=== PATIENT | female | born 1980 | race Caucasian/White ===

== ENCOUNTER 2016-10-31 10:59 | Emergency (ER) | payer OTHER ==
[2016-10-31 11:59] VITALS: BP 122/80
--- NOTE | 2016-10-31 12:20 | UC ---
Skin Complaint HPI - HPI Summary HPI Summary: pt presents with c/o erythematous, pruritic skin, clear fluid filled vesicles that began 1 month ago. Pt has possible exposure to poison GONZALEZ. Pt was seen by Dr. Hidalgo, stockroom associate and diagnosed with poison GONZALEZ. Pt was given a RX for steroid cream and has been using it with some improvement. Pt states that vesicles/skin are pruritic and spreading. - History of Current Complaint Time Seen by Provider: 10/31/16 11:58 Stated Complaint: RASH Hx Obtained From: Patient ?: No Onset/Duration: Gradual Onset, Lasting Weeks - 4-6 weeks Skin Exposure Onset/Duration: Weeks Ago Timing: Constant Onset Severity: Mild Current Severity: Mild Location: Diffuse Character: Pruritus, Redness Aggravating: Touch Alleviating: Other - prescription steroid cream Associated Signs & Symptoms: Positive: Rash, Drainage, Tenderness Related History: Possible Reaction to: Environmental Exposure - Allergy/Home Medications Allergies/Adverse Reactions: Allergies Allergy/AdvReac Type Severity Reaction Status Date / Time No Known Allergies Allergy Verified 10/31/16 12:02 Home Medications: Home Medications Halobetasol Propionate [Ultravate] 1 applic TOPICAL BID 10/31/16 [History Confirmed 10/31/16] Review of Systems Constitutional: Negative Skin: Rash, Other - vesicles clear filled fluid, erythematous Eyes: Negative ENT: Negative Respiratory: Negative Cardiovascular: Negative Gastrointestinal: Negative Genitourinary: Negative Motor: Negative Neurovascular: Negative Musculoskeletal: Negative Neurological: Negative Psychological: Negative All Other Systems Reviewed And Are Negative: Yes PMH/Surg Hx/FS Hx/Imm Hx Previously Healthy: Yes Psychological History: Anxiety - Surgical History Surgical History: Yes Surgery Procedure, Year, and Place: ; right ear tympanoplasty; septal surgery; kidney stones; parathyroid - Family History Known Family History: Positive: Other - positive [facility] for poison GONZALEZ- daughter - Social History Alcohol Use: Occasionally Substance Use Type: None Smoking Status (MU): Never Smoked Tobacco - Immunization History Most Recent Influenza Vaccination: fall 2013 Physical Exam Triage Information Reviewed: Yes Appearance: Well-Appearing Vital Signs: Initial Vital Signs Temp 96.8 F 10/31/16 11:56 Pulse 100 10/31/16 11:56 Resp 16 10/31/16 11:56 BP 122/80 10/31/16 11:56 Pulse Ox 97 10/31/16 11:56 Vital Signs Reviewed: Yes Eye Exam: Normal Neck exam: Other - rash Respiratory Exam: Normal Musculoskeletal Exam: Normal Neurological Exam: Normal Psychological Exam: Normal Skin Exam: Other - scattered fluid filled vesicles in various stages of healing , erythematous Course/Dx - Differential Diagnoses - Skin Complaint Differential Diagnoses: Cellulitis, Poison Gonzalez - Diagnoses Provider Diagnoses: poison GONZALEZ Discharge - Discharge Plan Condition: Stable Disposition: HOME Prescriptions: predniSONE TAB* [Deltasone TAB*] 20 mg PO DAILY #5 tab Patient Education Materials: Poison Gonzalez (ED) Referrals: Jesús Dillon MD [Primary Care Provider] - If Needed Rocky AGUAYO,Pablo Howell [Medical Doctor] - Additional Instructions: Please continue to use the steroid cream as directed as prescribed by Dr. Hidalgo. You may take an OTC antihistamine to help with the complaint of pruritis.
== END 2016-10-31 12:30 | disposition home or self-care (01) ==
LOC: UCCORT 10:59
DX: L23.7 Allergic contact dermatitis due to plants, except food (principal)
CPT/HCPCS: 99212; G0463